=== PATIENT | male | born 1975 | race Caucasian/White ===

== ENCOUNTER 2022-01-09 07:03 | Emergency (ER) | payer OTHER ==
[2022-01-09] MEDS ORDERED: AMOX TR-K CLV1 EAC4 PO ×2 (10:00→11:16)
[2022-01-09] MEDS ORDERED: NORCO 5-325 TA1 EACH PO (11:16)
== END 2022-01-09 11:16 | disposition home or self-care (01) ==
LOC: FER 07:03
DX: S61.451A Open bite of right hand, initial encounter (principal); E11.9 Type 2 diabetes mellitus without complications; Z88.5 Allergy status to narcotic agent; Y04.1XXA Assault by human bite, initial encounter
CPT/HCPCS: 73130; 99283